=== PATIENT | male | born 2000 | race American Indian/Alaskan Native ===

== ENCOUNTER 2019-09-02 09:46 | Emergency (ER) | payer OTHER ==
--- NOTE | 2019-09-02 10:10 | EDM.PDOC ---
ED HPI GENERAL MEDICAL PROBLEM - General Chief Complaint: Lower Extremity Injury/Pain Stated Complaint: INJURED LEFT AT WORK Time Seen by Provider: 09/02/19 10:00 Source of Information: Reports: Patient, RN, RN Notes Reviewed History Limitations: Reports: No Limitations - History of Present Illness INITIAL COMMENTS - FREE TEXT/NARRATIVE: Patient presents to ER with complaint of left knee pain. States he was doing PT for the [employer] this morning and was doing laterals, and felt a pop and a stinging pain in the lateral portion of the left knee. Patient states this occ urred approximately 45 minutes ago. Patient denies any previous injury to the knee. Patient has been able to ambulate on the leg but is painful. Onset: Today, Sudden - Related Data Allergies Allergy/AdvReac Type Severity Reaction Status Date / Time No Known Allergies Allergy Verified 09/02/19 09:56 Home Meds: Home Meds . [No Known Home Meds] 09/02/19 [History] Past Medical History - Past Health History Medical/Surgical History: Denies Medical/Surgical History Social & Family History - Tobacco Use Smoking Status *Q: Never Smoker Second Hand Smoke Exposure: No - Recreational Drug Use Recreational Drug Use: No Review of Systems - Review of Systems Review Of Systems: Comprehensive ROS is negative, except as noted in HPI. ED EXAM, GENERAL - Physical Exam Exam: See Below Exam Limited By: No Limitations General Appearance: Alert, WD/WN, Mild Distress Eye Exam: Bilateral Eye: EOMI, Normal Inspection Ears: Normal External Exam, Hearing Grossly Normal Nose: Normal Inspection Throat/Mouth: Normal Inspection, Normal Voice, No Airway Compromise Head: Atraumatic, Normocephalic Neck: Normal Inspection, Supple, Non-Tender, Full Range of Motion Respiratory/Chest: No Respiratory Distress, Lungs Clear, Normal Breath Sounds, No Accessory Muscle Use, Chest Non-Tender Cardiovascular: Normal Peripheral Pulses, Regular Rate, Rhythm, No Edema, No Gallop, No JVD, No Murmur, No Rub Peripheral Pulses: 2+: Radial (L), Radial (R) GI/Abdominal: Normal Bowel Sounds, Soft, Non-Tender (Male) Exam: Deferred Rectal (Males) Exam: Deferred Back Exam: Normal Inspection, Full Range of Motion Extremities: Normal Inspection, No Pedal Edema, Normal Capillary Refill, Leg Pain (left knee), Limited Range of Motion (left knee), Other (No instability of the left knee upon ROM testing). No: Joint Swelling, Increased Warmth, Redness Neurological: Alert, Oriented, CN II-XII Intact, Normal Cognition, Normal Reflexes, No Motor/Sensory Deficits Psychiatric: Normal Affect, Normal Mood Skin Exam: Warm, Dry, Intact, Normal Color, No Rash Lymphatic: No Adenopathy Course - Vital Signs Last Recorded V/S: Last Vital Signs Temp 98.2 F 09/02/19 09:51 Pulse 114 H 09/02/19 09:51 Resp 18 09/02/19 09:51 BP 128/78 09/02/19 09:51 Pulse Ox 96 09/02/19 09:51 - Radiology Interpretation Free Text/Narrative:: Left knee xray: PROCEDURE INFORMATION: Exam: XR Left Knee Exam date and time: 09/02/2019 9:58 AM Age: 18 years old Clinical indication: Injury or trauma; Injury history: Training trauma; Initial encounter; Blunt trauma; Knee; Left; Injury date: 09/02/2019; Additional info: Injury of left knee TECHNIQUE: Imaging protocol: XR Left knee. Views: 3 views. COMPARISON: No relevant prior studies available. FINDINGS: Bones/joints: Normal. Soft tissues: Normal. IMPRESSION: No acute findings. Thank you for allowing us to participate in the care of your patient. Dictated and Authenticated by: Ronald Campos MD 09/02/2019 10:48 AM Central Time ([place] & [place]) See rad report Departure - Departure Time of Disposition: 10:56 Disposition: Home, Self-Care 01 Condition: Good Clinical Impression: Strain of left knee Qualifiers: Encounter type: initial encounter Qualified Code(s): S86.912A - Strain of unspecified muscle(s) and tendon(s) at lower leg level, left leg, initial encounter - Discharge Information *PRESCRIPTION DRUG MONITORING PROGRAM REVIEWED*: No *COPY OF PRESCRIPTION DRUG MONITORING REPORT IN PATIENT DIYA: No Instructions: Crutch Use, Adult, [id number], How to Use Cold Therapy, [id number], Knee Sprain, Adult, [id number], How to Use a Knee Immobilizer, [id number] Forms: ED Department Discharge Additional Instructions: Elevate the leg when possible Keep knee immobilizer on when up and around Use crutches when up and around Try to limit weight bearing on the left knee Follow up with week with your primary care facility for MRI Ice the knee when able as tolerated May use Tylenol and/or Ibuprofen as directed for pain Sepsis Event Note (ED) - Evaluation Sepsis Screening Result: No Definite Risk - Focused Exam Vital Signs: Vital Signs Temp Pulse Resp BP Pulse Ox 09/02/19 09:51 98.2 F 114 H 18 128/78 96
--- NOTE | 2019-09-02 10:49 | CR ---
PROCEDURE INFORMATION: Exam: XR Left Knee Exam date and time: 09/02/2019 9:58 AM Age: 18 years old Clinical indication: Injury or trauma; Injury history: Training trauma; Initial encounter; Blunt trauma; Knee; Left; Injury date: 09/02/2019; Additional info: Injury of left knee TECHNIQUE: Imaging protocol: XR Left knee. Views: 3 views. COMPARISON: No relevant prior studies available. FINDINGS: Bones/joints: Normal. Soft tissues: Normal. IMPRESSION: No acute findings.
== END 2019-09-02 11:14 | disposition home or self-care (01) ==
LOC: DL.ED 09:46
DX: S86.812A Strain of other muscle(s) and tendon(s) at lower leg level, left leg, initial encounter (principal); X58.XXXA Exposure to other specified factors, initial encounter
CPT/HCPCS: 73562-LT; 99282; 99283-25

== ENCOUNTER 2020-06-21 12:16 | Emergency (ER) | payer OTHER ==
[2020-06-21] MEDS ORDERED: Ibuprofen 400 MG Tab PO ONE (15:45)
--- NOTE | 2020-06-21 15:50 | EDM.PDOC ---
ED HPI GENERAL MEDICAL PROBLEM - General Chief Complaint: General Stated Complaint: [id number] HAD 2ND MEDERNA SHOT NOT FEELING WELL Time Seen by Provider: 06/21/20 15:48 Source of Information: Reports: Patient, RN, RN Notes Reviewed History Limitations: Reports: No Limitations - History of Present Illness INITIAL COMMENTS - FREE TEXT/NARRATIVE: Loni is a 19 y/o male who presents to the ED via personal vehicle for complaints of headache and dizziness following the first dose of the Moderna COVID vaccination yesterday. The patient reports approximately one hour after he received the vaccine he began to experience a headache and dizziness. He was administered Benadryl 25mg PO, Cetirizine 10mg PO, and Ibuprofen 400mg PO by his Medics which offered him little alleviation of his symptoms. He denies vision changes, fever, shaking chills, hives, rash, throat tightness, oropharyngeal edema, chest pain, palpitations, or shortness of breath. He does attest to general malaise and headache. The patient states he is concerned as he was told most people experience these symptoms "..after their second dose, not their first dose." He denies history of allergy to vaccinations. He has not taken any additional doses of OTC analgesics for his symptoms since yesterday as "...I only take medications when I feel I need them." - Related Data Allergies Allergy/AdvReac Type Severity Reaction Status Date / Time No Known Allergies Allergy Verified 09/02/19 09:56 Home Meds: Home Meds . [No Known Home Meds] 09/02/19 [History] Past Medical History - Past Health History Medical/Surgical History: Denies Medical/Surgical History Social & Family History - Family History Family Medical History: No Pertinent Family History - Tobacco Use Tobacco Use Status *Q: Never Tobacco User - Caffeine Use Caffeine Use: Reports: None - Recreational Drug Use Recreational Drug Use: No ED ROS GENERAL - Review of Systems Review Of Systems: Comprehensive ROS is negative, except as noted in HPI. ED EXAM, GENERAL - Physical Exam Exam: See Below Exam Limited By: No Limitations General Appearance: Alert, No Apparent Distress Eye Exam: Bilateral Eye: EOMI, Normal Inspection, PERRL (2mm) Ears: Normal External Exam, Normal Canal, Hearing Grossly Normal, Normal TMs Ear Exam: Bilateral Ear: Auricle Normal, Canal Normal, TM normal Nose: Normal Inspection, Normal Mucosa, No Blood. No: Nasal Tenderness, Nasal Swelling Throat/Mouth: Normal Inspection, Normal Lips, Normal Teeth, Normal Gums, Normal Oropharynx, Normal Voice, No Airway Compromise, Perioral Cyanosis. No: Inflammation Head: Atraumatic, Normocephalic. No: Facial Swelling Neck: Normal Inspection, Supple, Non-Tender, Full Range of Motion. No: Lymphadenopathy (L), Lymphadenopathy (R) Respiratory/Chest: No Respiratory Distress, Lungs Clear, Normal Breath Sounds, No Accessory Muscle Use, Chest Non-Tender. No: Crackles, Rales, Rhonchi, Wheezing, Stridor, Pleural Rub Cardiovascular: Normal Peripheral Pulses, Regular Rate, Rhythm, No Edema, No Gallop, No JVD, No Murmur, No Rub. No: Tachycardia Peripheral Pulses: 2+: Radial (L), Radial (R) GI/Abdominal: Normal Bowel Sounds, Soft, Non-Tender, No Distention, No Mass, Pelvis Stable (Male) Exam: Deferred Rectal (Males) Exam: Deferred Back Exam: Normal Inspection, Full Range of Motion Extremities: Normal Inspection, Normal Range of Motion, Non-Tender, Normal Capillary Refill, No Pedal Edema Neurological: Alert, Oriented, CN II-XII Intact, Normal Cognition, Normal Gait, Normal Reflexes, No Motor/Sensory Deficits Psychiatric: Normal Affect, Normal Mood Skin Exam: Warm, Dry, Intact, Normal Color, No Rash. No: Diaphoretic, Ecchymosis, Erythema, Increased Warmth, Jaundice, Mottled, Pallor, Petechiae Lymphatic: No Adenopathy Course - Vital Signs Last Recorded V/S: Last Vital Signs Temp 97.9 F 06/21/20 16:38 Pulse 70 06/21/20 16:38 Resp 17 06/21/20 16:38 BP 136/85 06/21/20 16:38 Pulse Ox 100 06/21/20 16:38 - Orders/Labs/Meds Meds: Medications Discontinued Medications Generic Name Dose Route Start Last Admin Trade Name Tinq PRN Reason Stop Dose Admin Ibuprofen 400 mg 06/21/20 15:45 06/21/20 15:55 Ibuprofen 400 Mg Tab PO 06/21/20 15:46 400 mg ONETIME ONE Administration - Re-Assessments/Exams Free Text/Narrative Re-Assessment/Exam: 06/21/20 Findings of examination reviewed with patient. Discussed appropriate immune response following inoculation as well as supportive cares for management of symptoms. Ibuprofen 400mg PO administered for headache. Red flag signs and symptoms which warrant reevaluation reviewed. Patient verbalized understanding and agreement with the plan of care. Departure - Departure Time of Disposition: 15:51 Disposition: Home, Self-Care 01 Condition: Good Clinical Impression: Headache after vaccination - Discharge Information *PRESCRIPTION DRUG MONITORING PROGRAM REVIEWED*: Not Applicable *COPY OF PRESCRIPTION DRUG MONITORING REPORT IN PATIENT DIYA: Not Applicable Referrals: PCP,None [Primary Care Provider] - Forms: ED Department Discharge Additional Instructions: 1.) You may take ibuprofen (Advil/Motrin) 400mg every six hours, as headache and malaise persists. You may also take acetaminophen (Tylenol) 650mg every six hours, as pain persists. You may stagger these medications so you are receiving a dose every three hours. 2.) Eat a bland diet while you are experiencing side effects from the vaccine. Avoid spicy, high-fat, greasy foods. 3.) Drink plenty of water to stay hydrated. Sepsis Event Note (ED) - Evaluation Sepsis Screening Result: No Definite Risk
== END 2020-06-21 16:40 | disposition home or self-care (01) ==
LOC: DL.ED 12:16
DX: G44.40 Drug-induced headache, not elsewhere classified, not intractable (principal); T50.B95A Adverse effect of other viral vaccines, initial encounter
CPT/HCPCS: 99282; 99283; A9270-GY